=== PATIENT | male | born 1960 | race Caucasian/White ===

== ENCOUNTER → 2018-05-06 16:31 | Outpatient (CLI) | payer BC, SELFPAY ==
[2018-05-06 17:45] LABS: Absolute Lymphocyte Count 1.74 X10^3/ul (0.83-4.51); Absolute Neutrophil Count 4.6 X10^3/uL (2.0-7.7); Basophil# 0.06 X10^3/uL; Basophil% 0.9 % (0-1); Eosinophil# 0.19 X10^3/uL; Eosinophils% 2.7 % (0-5); Hematocrit 44.6 % (40-54); Hemoglobin 16.1 g/dl (13.0-16.5); Lymphocyte # 1.74 X10^3/ul (4.0); Lymphocyte % 24.9 % (19-41); Mean Corp Hgb Conc 36.1 g/gl (32-36); Mean Corpuscular Volume 85.8 fL (80-94); Mean Platelet Vol. 11.8 fl (6.2-12.0); Monocyte# 0.38 X10^3/uL; Monocyte% 5.4 % (0-10); Neutrophil # 4.62 X10^3/uL (2.7-7.7); Platelet Count 169 K/mm3 (150-450); RBC Distribution Width CV 13.3 % (11.6-14.6); RBC Distribution Width SD 40.8 fl (35.1-43.9)
[2018-05-06 17:46] LABS: POSITIVE COUNT NO; POSITIVE DIFFERENTIAL NO; POSITIVE MORPHOLOGY NO
[2018-05-06 18:06] LABS: ALB/GLOB Ratio 1.1 RATIO (0.9-2.4); AST(SGOT) 57 U/L (15-37); Alanine Aminotransfer ALT/SGPT 90 U/L (16-61); Albumin, Serum 3.9 g/dL (3.2-5.0); Alkaline Phosphatase 79 U/L (45-117); Anion Gap 12 (5-15); BUN 15 mg/dL (7-18); BUN/Creat Ratio 13.4 RATIO (10-20); Calcium,Total 9.2 mg/dL (8.5-10.1); Chloride 102 mmol/L (98-107); Creatinine, Serum 1.12 mg/dL (0.70-1.30); EST Glomerular Filtration Rate 72 mL/min (>60); Est Glom Filt Rate - Afr Amer 87 mL/min (>60); Globulin 3.5 g/dL (2.2-4.2); Glucose 242 mg/dL (74-106); Potassium 3.9 mmol/L (3.5-5.1); Protein, Total 7.4 g/dL (6.4-8.2); Sodium Level 139 mmol/L (136-145); Thyroid Stim Hormone (TSH) 1.87 uIU/mL (0.358-3.74)
== END ==
PROVIDERS: Visit Provider Family Medicine
DX: I10 Essential (primary) hypertension (principal); E11.65 Type 2 diabetes mellitus with hyperglycemia
CPT/HCPCS: 36415; 80053; 84443; 85025

== ENCOUNTER → 2018-05-19 07:45 | Outpatient (CLI) | payer BC, SELFPAY | PROVIDERS: Family Provider Family Medicine; PCP Family Medicine; Visit Provider Family Medicine | DX: R94.5 Abnormal results of liver function studies (principal) | CPT/HCPCS: 76705 ==

== ENCOUNTER → 2019-06-28 | Outpatient (CLI) | payer BC, SELFPAY ==
[2019-06-28 12:37] LABS: ALB/GLOB Ratio 1.3 RATIO (0.9-2.4); AST(SGOT) 22 U/L (15-37); Alanine Aminotransfer ALT/SGPT 36 U/L (16-61); Albumin, Serum 3.9 g/dL (3.2-5.0); Alkaline Phosphatase 72 U/L (45-117); Anion Gap 7 (5-15); BUN 21 mg/dL (7-18); Calcium,Total 8.8 mg/dL (8.5-10.1); Chloride 109 mmol/L (98-107); Creatinine, Serum 0.96 mg/dL (0.70-1.30); EST Glomerular Filtration Rate 86 mL/min (>60); Est Glom Filt Rate - Afr Amer 104 mL/min (>60); Globulin 3.1 g/dL (2.2-4.2); Glucose 171 mg/dL (74-106); Potassium 4.1 mmol/L (3.5-5.1); Sodium Level 141 mmol/L (136-145); Thyroid Stim Hormone (TSH) 2.59 uIU/mL (0.358-3.74)
[2019-06-28 12:40] LABS: Absolute Lymphocyte Count 1.26 X10^3/uL (0.83-4.51); Basophil# 0.05 X10^3/uL; Basophil% 0.9 % (0-1); Eosinophil# 0.15 X10^3/uL; Eosinophils% 2.6 % (0-5); Hematocrit 44.3 % (40-54); Hemoglobin 15.3 g/dL (13.0-16.5); Lymphocyte # 1.26 X10^3/ul (4.0); Lymphocyte % 21.5 % (19-41); Mean Corp Hgb Conc 34.5 g/dL (32-36); Mean Corpuscular Hgb 29.9 pg (27.0-32.0); Mean Corpuscular Volume 86.7 fL (80-94); Mean Platelet Vol. 11.8 fl (6.2-12.0); Monocyte# 0.36 X10^3/uL; Monocyte% 6.2 % (0-10); NRBC Flagged by Analyzer 0 % (0-5); Neutrophil # 4.02 X10^3/uL (2.7-7.7); Neutrophil % 68.6 % (47-70); Platelet Count 139 K/mm3 (150-450); RBC Distribution Width CV 12.9 % (11.6-14.6); RBC Distribution Width SD 40.3 fl (35.1-43.9); Red Blood Count 5.11 M/mm3 (4.6-6.2); White Blood Count 5.9 K/mm3 (4.4-11.0)
--- NOTE | 2019-06-28 13:37 | ECHOCS_ITS ---
Reason For Study: DILATED CARDIOMYOPATHY Procedure This was a 2D Doppler, Color Flow transthoracic echocardiogram. The study was technically difficult. Contrast injection was performed. Exam performed in department. Left Ventricle Normal LV size. Concentric left ventricular hypertrophy. The estimated ejection fraction is 55 %. No evidence for diastolic dysfunction. Hypokinesis of the inferior wall. Right Ventricle Normal RV size. Normal systolic function. Atria Normal left atrium. Normal right atrium. No doppler evidence for ASD. Mitral Valve There is no mitral valve stenosis. No mitral valve insufficiency. Tricuspid Valve There is no tricuspid stenosis. Unable to estimate RV systolic pressure due to insufficient tricuspid regurgitant envelope. Trivial tricuspid valve insufficiency. Aortic Valve Trisinus/trileaflet aortic valve. There is no aortic stenosis. Moderate (2+) aortic valve insufficiency. Pulmonic Valve There is no pulmonic valvular stenosis. No pulmonic valve insufficiency. Great Vessels Normal aortic root. Pericardium/Pleural No pericardial effusion. Medication 22 gauge I.V. with prn adaptor inserted into right arm. Diluted definity 3.5ml given slow IV push to enhance endocardial definition. MMode/2D Measurements & Calculations LVIDd: 6.4 cm IVSd: 1.4 cm LVOT diam: 2.5 cm LVIDs: 4.5 cm LVPWd: 1.2 cm RVDd: 4.0 cm FS: 29.9 % LVOT area: 4.7 cm2 Ao root diam: 3.4 cm LAV(MOD-bp): 66.8 ml LA A4 area: 19.2 cm2 LAV(MOD-bp) Indexed: 26.9 ml/m2 LAV(MOD-sp2): 76.3 ml LAV(MOD-sp4): 58.0 ml LA dimension(2D): 4.8 cm RA A4 area: 18.0 cm2 Time Measurements MV dec time: 0.20 sec Doppler Measurements & Calculations MV E max josue: 69.1 cm/sec Lat Peak E' Josue: 5.4 cm/sec Med Peak E' Josue: 4.8 cm/sec MV A max josue: 82.5 cm/sec E/E' lat: 12.9 E/E' med: 14.3 MV E/A: 0.84 Ao V2 max: 186.2 cm/sec AI max josue: 525.2 cm/sec LV V1 max: 82.3 cm/sec Ao max P.9 mmHg AI max P.4 mmHg LV V1 max P.7 mmHg Ao V2 mean: 138.6 cm/sec AI dec slope: 146.6 cm/sec2 LV V1 mean P.6 mmHg Ao mean P.4 mmHg AI P1/2t: 1050 msec LV V1 mean: 60.5 cm/sec Ao V2 VTI: 43.7 cm LV V1 VTI: 21.4 cm SUNITHA(I,D): 2.3 cm2 SUNITHA(V,D): 2.1 cm2 SV(LVOT): 101.6 ml PA V2 max: 105.0 cm/sec Interpretation Summary The study was technically difficult. Diluted definity 3.5ml given slow IV push to enhance endocardial definition. The estimated ejection fraction is 55 %. No evidence for diastolic dysfunction. Hypokinesis of the inferior wall Moderate (2+) aortic valve insufficiency. The study was technically difficult. Ordering Physician: Mikey Ledbetter Referring Physician: Mikey Ledebtter Performed By: Jyoti Miguel, ESPERANZA, RVT
== END | disposition home or self-care (01) ==
PROVIDERS: Family Provider Family Medicine; PCP Family Medicine; Referring Provider Family Medicine; Visit Provider Family Medicine
DX: E11.9 Type 2 diabetes mellitus without complications (principal); E78.5 Hyperlipidemia, unspecified; I10 Essential (primary) hypertension; I42.0 Dilated cardiomyopathy
CPT/HCPCS: 36415; 80053; 84439; 84443; 85025; 93306; Q9957; A4216; C8929

== ENCOUNTER → 2019-08-05 06:10 | Outpatient (CLI) | payer BC, SELFPAY ==
[2019-07-30 15:00] VITALS: BMI 36.3
--- NOTE | 2019-08-05 09:13 | STRESSREP_ITS ---
Stress Test Report Date: 08-05-19 Procedure: Pharmacologic stress nuclear imaging study Indications: Chest pain Consent: Per the patient Procedure: The patient underwent pharmacologic (Regadenoson) evaluation with a peak heart rate of 78 beats per minute (48 %predicted maximal heart rate) and a peak blood pressure of 140/92 mmHg. The baseline ECG demonstrated this bradycardia; nonspecific T wave abnormality. The peak pharmacologic ECG demonstrated continued nonspecific T wave abnormality. There was an occasional PAC during pharmacologic infusion and recovery. There was no complaint of chest discomfort during pharmacologic infusion or recovery. The examination was discontinued secondary to completion of protocol. Impression: 1. Pharmacologic (Regadenoson) evaluation 2. Peak pharmacologic ECG with continued nonspecific T wave abnormality. 3. There was an occasional PAC during pharmacologic infusion and recovery. 4. Nuclear images pending Myocardial perfusion imaging study: Technique: The patient was injected with 15.0 millicuries of technetium 99m Cardiolite and subsequently rest SPECT Cardiolite nuclear imaging was obtained in the horizontal long, vertical long, and short axis views. The patient underwent pharmacologic (Regadenoson) evaluation with a peak heart rate of 78 beats per minute (48 % percent predicted maximal heart rate) and a peak blood pressure of 140/92 mmHg. The patient was injected with 45.0 millicuries of technetium 99m Cardiolite and subsequently stress SPECT Cardiolite nuclear imaging was obtained in the horizontal long, vertical long, and short axis views. A gated Cardiolite study at peak stress was obtained. Interpretation: Rest and stress SPECT Cardiolite nuclear imaging status post realignment, normalization, and attenuation correction demonstrate straight a small area of myocardial perfusion/tracer uptake in the apical segments without significant change between rest and stress. There is end systolic thickening and brightening. The gated Cardiolite study demonstrates myocardial thickening and inward wall motion. The reported LVEF is 56 %. Impression: 1. Test and stress SPECT current nuclear imaging demonstrate myocardial perfusion changes appearing compatible with the effects of physiologic apical thinning with no myocardial perfusion changes considered diagnostic for associated stress-induced myocardial ischemia. 2. The gated Cardiolite study reports an LVEF of 56 %. This note was generated with [email or web address] software. It may contain incorrect words, spelling, and punctuation that were not noted in checking the note before signing.
== END ==
PROVIDERS: Family Provider Family Medicine; PCP Family Medicine; Referring Provider Internal Medicine Cardiovascular Disease; Visit Provider Internal Medicine Cardiovascular Disease
DX: I49.1 Atrial premature depolarization (principal); R07.9 Chest pain, unspecified
CPT/HCPCS: 78452; 93017; 93225; 93226; A9500; A4216; J2785

== ENCOUNTER → 2020-03-31 14:30 | Outpatient (CLI) | payer BC, SELFPAY ==
[2019-11-01 14:55] VITALS: BMI 36.4
[2020-03-31 15:30] LABS: Absolute Lymphocyte Count 1.52 X10^3/uL (0.83-4.51); Absolute Neutrophil Count 4.6 X10^3/uL (2.0-7.7); Basophil# 0.05 X10^3/uL; Basophil% 0.7 % (0-1); Eosinophil# 0.16 X10^3/uL; Eosinophils% 2.3 % (0-5); Hematocrit 44.7 % (40-54); Hemoglobin 15.3 g/dL (13.0-16.5); Lymphocyte # 1.52 X10^3/ul (4.0); Lymphocyte % 22.2 % (19-41); Mean Corp Hgb Conc 34.2 g/dL (32-36); Mean Corpuscular Hgb 29.8 pg (27.0-32.0); Mean Platelet Vol. 11.3 fl (6.2-12.0); Monocyte# 0.45 X10^3/uL; Monocyte% 6.6 % (0-10); NRBC Flagged by Analyzer 0 % (0-5); Neutrophil # 4.64 X10^3/uL (2.7-7.7); Neutrophil % 67.9 % (47-70); Platelet Count 169 K/mm3 (150-450); RBC Distribution Width CV 13.6 % (11.6-14.6); RBC Distribution Width SD 42.8 fl (35.1-43.9); Red Blood Count 5.14 M/mm3 (4.6-6.2); White Blood Count 6.8 K/mm3 (4.4-11.0)
[2020-03-31 15:49] LABS: ALB/GLOB Ratio 1.4 RATIO (0.9-2.4); AST(SGOT) 28 U/L (15-37); Alanine Aminotransfer ALT/SGPT 58 U/L (16-61); Albumin, Serum 4.1 g/dL (3.2-5.0); Alkaline Phosphatase 65 U/L (45-117); Anion Gap 8 (5-15); BUN 20 mg/dL (7-18); BUN/Creat Ratio 20.2 RATIO (10-20); Calcium,Total 8.9 mg/dL (8.5-10.1); Chloride 108 mmol/L (98-107); Cholesterol 175 mg/dL (200); Creatinine, Serum 0.99 mg/dL (0.70-1.30); EST Glomerular Filtration Rate 82 mL/min (>60); Est Glom Filt Rate - Afr Amer 99 mL/min (>60); Glucose 216 mg/dL (74-106); High Density Lipoprotein 36 mg/dL; Potassium 3.9 mmol/L (3.5-5.1); Protein, Total 7.1 g/dL (6.4-8.2); Sodium Level 141 mmol/L (136-145); Thyroid Stim Hormone (TSH) 2.58 uIU/mL (0.358-3.74); Triglycerides 337 mg/dL; Very Low Density Lipoprotein 67 mg/dL (5-40)
== END ==
PROVIDERS: PCP Family Medicine; Visit Provider Family Medicine
DX: E78.5 Hyperlipidemia, unspecified (principal); E11.9 Type 2 diabetes mellitus without complications; I10 Essential (primary) hypertension; E66.01 Morbid (severe) obesity due to excess calories; R94.5 Abnormal results of liver function studies
CPT/HCPCS: 36415; 80053; 80061; 84443; 85025

== ENCOUNTER → 2021-04-28 10:45 | Outpatient (CLI) | payer BC, SELFPAY ==
[2020-12-19 15:33] VITALS: BMI 36.8
[2021-04-28 11:41] LABS: Absolute Lymphocyte Count 1.33 X10^3/uL (0.83-4.51); Absolute Neutrophil Count 3.7 X10^3/uL (2.0-7.7); Basophil# 0.07 X10^3/uL; Basophil% 1.2 % (0-1); Eosinophils% 3.5 % (0-5); Hematocrit 42.7 % (40-54); Hemoglobin 14.7 g/dL (13.0-16.5); Lymphocyte # 1.33 X10^3/ul (0.83-4.51); Lymphocyte % 23.3 % (19-41); Mean Corp Hgb Conc 34.4 g/dL (32-36); Mean Corpuscular Hgb 30.3 pg (27.0-32.0); Mean Platelet Vol. 10.9 fl (6.2-12.0); Monocyte# 0.36 X10^3/uL; Monocyte% 6.3 % (0-10); NRBC Flagged by Analyzer 0 % (0-5); Neutrophil # 3.71 X10^3/uL (2.7-7.7); Neutrophil % 65.2 % (47-70); Platelet Count 153 K/mm3 (150-450); RBC Distribution Width CV 13.1 % (11.6-14.6); RBC Distribution Width SD 41.7 fl (35.1-43.9); Red Blood Count 4.85 M/mm3 (4.6-6.2); White Blood Count 5.7 K/mm3 (4.4-11.0)
[2021-04-28 12:11] LABS: ALB/GLOB Ratio 1.1 RATIO (0.9-2.4); AST(SGOT) 25 U/L (15-37); Alanine Aminotransfer ALT/SGPT 45 U/L (16-61); Albumin, Serum 3.9 g/dL (3.2-5.0); Alkaline Phosphatase 68 U/L (45-117); Anion Gap 5 (5-15); BUN 20 mg/dL (7-18); BUN/Creat Ratio 15.9 RATIO (10-20); Calcium,Total 9.1 mg/dL (8.5-10.1); Chloride 107 mmol/L (98-107); Cholesterol 181 mg/dL (200); Creatinine, Serum 1.26 mg/dL (0.70-1.30); EST Glomerular Filtration Rate 62 mL/min (>60); Est Glom Filt Rate - Afr Amer 75 mL/min (>60); Globulin 3.4 g/dL (2.2-4.2); Glucose 226 mg/dL (74-106); High Density Lipoprotein 37 mg/dL; Potassium 4.2 mmol/L (3.5-5.1); Protein, Total 7.3 g/dL (6.4-8.2); Sodium Level 139 mmol/L (136-145); Thyroid Stim Hormone (TSH) 2.42 uIU/mL (0.358-3.74); Triglycerides 298 mg/dL; Very Low Density Lipoprotein 60 mg/dL (5-40)
== END ==
PROVIDERS: PCP Family Medicine; Referring Provider Family Medicine; Visit Provider Family Medicine
DX: E11.9 Type 2 diabetes mellitus without complications (principal); I10 Essential (primary) hypertension; R94.5 Abnormal results of liver function studies
CPT/HCPCS: 36415; 80053; 80061; 84443; 85025

== ENCOUNTER → 2021-09-05 16:36 | Outpatient (CLI) | payer BC, SELFPAY ==
--- NOTE | 2021-09-05 16:38 | RAD_ITS ---
STUDY: X-RAY - ABDOMEN/PELVIS REASON FOR EXAM: Male, 61 years old. HEMATURIA, RULE OUT URETEROLITHIASIS TECHNIQUE: Single AP view of the abdomen / pelvis. COMPARISON: None. FINDINGS: Normal visualized lung bases. There is an unremarkable bowel gas pattern. The visualized liver, spleen and kidneys are grossly normal in size and morphology. Normal soft tissue structures. Normal visualized osseous structures. RAD/Abdomen Single View IMPRESSION: Normal x-ray examination of the abdomen and pelvis. Electronically Signed: Jose Joseph MD at 16:52 EST Tel , Service support ,
== END ==
PROVIDERS: PCP Family Medicine; Referring Provider Family Medicine; Visit Provider Family Medicine
DX: R31.9 Hematuria, unspecified (principal)
CPT/HCPCS: 74018

== ENCOUNTER → 2022-05-09 | Outpatient (CLI) | payer BC, SELFPAY ==
--- NOTE | 2022-05-09 16:47 | RAD_ITS ---
HISTORY: BACK PAIN. TECHNIQUE: XR Spine Lumbar Min 4 Views. COMPARISON: 05/12/2017. FINDINGS: VERTEBRAE: No acute fracture identified. Bridging osteophyte at L2-3. Degenerative changes of the posterior elements. ALIGNMENT: No significant anterior or posterior subluxation. INTERVERTEBRAL DISCS: Degenerative endplate changes with progression of intervertebral disc space narrowing at L2-3. RAD/L/S Spine Min 4 Views IMPRESSION: No acute fracture or dislocation identified in the lumbar spine. Progression of degenerative change at L2-3. Electronically Signed: Susana Alexis MD at 8:45 EDT ,
== END | disposition home or self-care (01) ==
LOC: MTRAD 16:44
PROVIDERS: PCP Family Medicine; Referring Provider Nurse Practitioner Family; Visit Provider Nurse Practitioner Family
DX: M46.96 Unspecified inflammatory spondylopathy, lumbar region (principal); M51.37 Other intervertebral disc degeneration, lumbosacral region; M54.17 Radiculopathy, lumbosacral region; M47.817 Spondylosis without myelopathy or radiculopathy, lumbosacral region
CPT/HCPCS: 72110

== ENCOUNTER → 2023-01-10 | Outpatient (CLI) | payer BC, SELFPAY ==
[2023-01-10 17:56] LABS: Absolute Lymphocyte Count 1.82 X10^3/uL (0.83-4.51); Absolute Neutrophil Count 4.9 X10^3/uL (2.0-7.7); Basophil# 0.07 X10^3/uL; Basophil% 0.9 % (0-1); Eosinophil# 0.17 X10^3/uL; Eosinophils% 2.3 % (0-5); Hemoglobin 14.9 g/dL (13.0-16.5); Lymphocyte # 1.82 X10^3/ul (0.83-4.51); Lymphocyte % 24.6 % (19-41); Mean Corp Hgb Conc 33.9 g/dL (32-36); Mean Corpuscular Hgb 29.7 pg (27.0-32.0); Mean Corpuscular Volume 87.6 fL (80-94); Mean Platelet Vol. 10.8 fl (6.2-12.0); Monocyte# 0.41 X10^3/uL; Monocyte% 5.5 % (0-10); NRBC Flagged by Analyzer 0 % (0-5); Neutrophil # 4.92 X10^3/uL (2.7-7.7); Neutrophil % 66.6 % (47-70); Platelet Count 175 K/mm3 (150-450); RBC Distribution Width CV 13.6 % (11.6-14.6); RBC Distribution Width SD 43.6 fl (35.1-43.9); Red Blood Count 5.02 M/mm3 (4.6-6.2); White Blood Count 7.4 K/mm3 (4.4-11.0)
[2023-01-10 18:35] LABS: ALB/GLOB Ratio 1.2 RATIO (0.9-2.4); AST(SGOT) 29 U/L (15-37); Alanine Aminotransfer ALT/SGPT 56 U/L (16-61); Albumin, Serum 3.9 g/dL (3.2-5.0); Alkaline Phosphatase 67 U/L (45-117); Anion Gap 6 (5-15); BUN 19 mg/dL (7-18); BUN/Creat Ratio 19.2 RATIO (10-20); Calcium,Total 9.4 mg/dL (8.5-10.1); Chloride 105 mmol/L (98-107); Cholesterol 148 mg/dL (200); Creatinine, Serum 0.99 mg/dL (0.70-1.30); EST Glomerular Filtration Rate 81 mL/min (>60); Est Glom Filt Rate - Afr Amer 99 mL/min (>60); Globulin 3.2 g/dL (2.2-4.2); Glucose 102 mg/dL (74-106); High Density Lipoprotein 39 mg/dL; Potassium 3.7 mmol/L (3.5-5.1); Protein, Total 7.1 g/dL (6.4-8.2); Sodium Level 137 mmol/L (136-145); Triglycerides 235 mg/dL; Very Low Density Lipoprotein 47 mg/dL (5-40)
== END | disposition home or self-care (01) ==
LOC: BFHLAB 16:37
PROVIDERS: PCP Nurse Practitioner Family; Referring Provider Nurse Practitioner Family; Visit Provider Nurse Practitioner Family
DX: Z00.00 Encounter for general adult medical examination without abnormal findings (principal); E11.9 Type 2 diabetes mellitus without complications; E78.5 Hyperlipidemia, unspecified; I10 Essential (primary) hypertension
CPT/HCPCS: 36415; 80053; 80061; 85025

== ENCOUNTER 2023-02-15 15:38 | Emergency (ER) | payer BC, SELFPAY ==
[2023-02-15 15:38] VITALS: BP 141/63; PULSE 62; RESP 18; TEMP 37.2; O2SAT 98; BMI 37.1
--- NOTE | 2023-02-15 15:48 | EX.ED.DYSGE1 ---
HPI <DENICE Carpenter - Last Filed: 02/15/23 16:53> History of Present Illness Chief Complaint: Cellulitis Narrative Narrative: Patient states a few days ago he put on an oven mitt and felt something sharp poke the back of his right hand. He thought maybe it was a piece of fiberglass in the mitt. It caused a small wound and he scratched it. The next day it was swollen and he pushed on it and expressed some pus. Since then the area has become more red and swollen over the hand with pain. He is right-hand dominant. He denies fever or chills but does feel nauseous today. He went to urgent care and they noticed a red streak up his arm and sent him to the ED. [facility] <DENICE Carpenter - Last Filed: 02/15/23 16:53> [facility] Medical History (Updated 02/15/23 @ 16:53 by DENICE Carpenter) Colon polyps DDD (degenerative disc disease) Dilated cardiomyopathy Essential hypertension Nonrheumatic aortic (valve) insufficiency Premature atrial contraction Type 2 diabetes mellitus Home Medications aspirin 81 mg tablet,delayed release 81 mg PO DAILY@0800 12/30/16 [History Last Taken Unknown] hydrochlorothiazide 12.5 mg tablet 12.5 mg PO DAILY 12/30/16 [History Last Taken Unknown] lisinopril 40 mg tablet 40 mg PO DAILY 12/30/16 [History Last Taken 01/06/17 06:45] metformin 500 mg tablet 500 mg PO BIDCM 12/30/16 [History Last Taken Unknown] multivitamin 1 ea PO DAILY 12/30/16 [History Last Taken Unknown] omega-3 fatty acids-fish oil 340 mg-1,000 mg capsule 1 ea PO DAILY 12/30/16 [History Last Taken Unknown] pravastatin 20 mg tablet 20 mg PO DAILY 12/30/16 [History Last Taken Unknown] metoprolol succinate 100 mg tablet,extended release 24 hr 100 mg PO DAILY 07/26/19 [History Last Taken Unknown] glimepiride 4 mg tablet 4 mg PO DAILY 12/19/20 [History Last Taken Unknown] amlodipine 5 mg tablet 5 mg PO DAILY #90 tabs 07/12/21 [Rx Last Taken Unknown] cephalexin 500 mg capsule 500 mg PO Q6 #40 CAPSULES 02/15/23 [Rx Last Taken Unknown] Allergy/AdvReac Type Severity Reaction Status Date / Time atorvastatin [From Lipitor] AdvReac LEG CRAMPS Verified 12/19/20 15:33 Family History Brother Valvular heart disease Brother Atrial fibrillation Father Hypertension Mother CHF (congestive heart failure) Sister Sudden cardiac , Onset Age: 35 Social History Smoking Status: Never smoker alcohol intake: never substance use type: does not use caffeine: No ROS <DENICE Carpenter - Last Filed: 02/15/23 16:53> ROS ED ROS Narrative Constitutional: Negative for fever, chills, malaise. GI: Positive for nausea, negative for vomiting. Neuro: Negative for headache, motor/sensory dysfunction. Skin: Negative for rash, abscess, or wound. Musc: Negative for joint pain, swelling, trauma. Heme: Negative for easy bruising, bleeding, lymphadenopathy. EXAM <DENICE Carpenter - Last Filed: 02/15/23 16:53> Physical Exam Narrative Exam Narrative: CONST: Patient sitting in no acute distress. EYES: Normal inspection. NECK: Normal inspection. RESP: No respiratory distress, CTAB. CVS: Regular rate and rhythm, no murmur, no gallop. SKIN: Soft tissue swelling and erythema over the dorsal right hand, hard to visualize but possibly slight red streak up the forearm. No fluctuance or crepitus, compartments soft. Full range of motion of elbow wrist and hand, no swelling of the fingers. 2+ radial pulse and motor and sensory function intact. NEURO: Oriented x4. PSYCH: Normal affect. Const Vital Signs: 02/15/23 15:38 Temperature 98.9 F Temperature Source Oral Pulse Rate 62 Respiratory Rate 18 Blood Pressure 141/63 H Blood Pressure Mean 89 Pulse Ox 98 Oxygen Delivery Method Room Air <Dr. Ronnie Yang MD - Last Filed: 02/15/23 16:46> Physical Exam Const Vital Signs: 02/15/23 15:38 Temperature 98.9 F Temperature Source Oral Pulse Rate 62 Respiratory Rate 18 Blood Pressure 141/63 H Blood Pressure Mean 89 Pulse Ox 98 Oxygen Delivery Method Room Air MDM <DENICE Carpenter - Last Filed: 02/15/23 16:53> MDM MDM Narrative Medical decision making narrative: Patient had a puncture wound to his right dorsal hand and now has cellulitis and soft tissue swelling. There is possibly slight lymphangitic streaking up the arm. He appears well and nontoxic. Afebrile with normal vital signs. White count 14.8, glucose 214. He was given a dose of IV Unasyn. He really wants to go home since he takes care of his grandchild so I feel a trial of outpatient antibiotics is reasonable. He was prescribed Keflex 4 times daily. I contacted someone in his PCP office, Dr. Alvarez, to arrange close follow-up on Friday. Return if symptoms worsen. He was discharged in stable condition. Differential: Cellulitis, abscess, no sign of necrotizing fasciitis I have personally performed a face to face assessment of the patient and have reviewed the KALYANI Note. I performed a substantive portion of the visit including all aspects of the following. My king findings include: History is 62-year-old male diabetic and alrba-ynju-efybrybv. Had a puncture wound to the dorsum of his right hand and since that time has developed cellulitis. I evaluated this patient with our physician certified ophthalmic assistant. Exam is [well-appearing 60-year-old male. Vital signs stable afebrile. HEENT exam unremarkable. Lungs clear. Heart regular rhythm no murmur. Abdomen soft nontender. Right hand is swollen mildly tender. He has full flexion extension all digits of the hand. There is no Canaval sign.] Medical Decision Making [62-year-old male wfgww-usuk-zohbyxhs with cellulitis of his right hand. Treated with IV Unasyn. Skin elevated white count of 14.8 but clinically looks well. He is afebrile on repeat exam he is doing well at 4:40 PM. We placed on Keflex 500 mg 4 times a day for 10 days return if worse. Follow-up with his doctor to ensure it is improving. We have his physician's office on page. To ensure close follow-up.] Other additions or changes: [None] Lab Data Labs: Laboratory Results - last 24 hr 02/15/23 02/15/23 16:04 16:04 WBC 14.8 H RBC 4.85 Hgb 14.9 Hct 42.3 MCV 87.2 MCH 30.7 MCHC 35.2 RDW Std Deviation 43.3 RDW Coeff of Shania 13.8 Plt Count 164 MPV 10.7 Immature Gran % (Auto) 0.400 Neut % (Auto) 83.9 H Lymph % (Auto) 7.6 L Nelson % (Auto) 6.6 Eos % (Auto) 1.0 Baso % (Auto) 0.5 Absolute Neuts (auto) 12.4 H Absolute Lymphs (auto) 1.13 Nucleated RBC % 0 Sodium 137 Potassium 4.4 Chloride 103 Carbon Dioxide 26.0 Anion Gap 8 BUN 24 H Creatinine 1.27 Estim Creat Clear Calc 68.16 Est GFR (MDRD) Af Amer 74 Est GFR (MDRD) Non-Af 61 BUN/Creatinine Ratio 18.9 Glucose 214 H Calcium 9.5 <Dr. Ronnie Yang MD - Last Filed: 02/15/23 16:46> MDM MDM Narrative Medical decision making narrative: I have personally performed a face to face assessment of the patient and have reviewed the KALYANI Note. I performed a substantive portion of the visit including all aspects of the following. My king findings include: History is 62-year-old male diabetic and gemoy-dcbx-gvckzfvy. Had a puncture wound to the dorsum of his right hand and since that time has developed cellulitis. I evaluated this patient with our physician certified ophthalmic assistant. Exam is [well-appearing 60-year-old male. Vital signs stable afebrile. HEENT exam unremarkable. Lungs clear. Heart regular rhythm no murmur. Abdomen soft nontender. Right hand is swollen mildly tender. He has full flexion extension all digits of the hand. There is no Canaval sign.] Medical Decision Making [62-year-old male nhvwu-thpz-ziycdhmw with cellulitis of his right hand. Treated with IV Unasyn. Skin elevated white count of 14.8 but clinically looks well. He is afebrile on repeat exam he is doing well at 4:40 PM. We placed on Keflex 500 mg 4 times a day for 10 days return if worse. Follow-up with his doctor to ensure it is improving. We have his physician's office on page. To ensure close follow-up.] Other additions or changes: [None] Lab Data Labs: Laboratory Results - last 24 hr 02/15/23 02/15/23 16:04 16:04 WBC 14.8 H RBC 4.85 Hgb 14.9 Hct 42.3 MCV 87.2 MCH 30.7 MCHC 35.2 RDW Std Deviation 43.3 RDW Coeff of Shania 13.8 Plt Count 164 MPV 10.7 Immature Gran % (Auto) 0.400 Neut % (Auto) 83.9 H Lymph % (Auto) 7.6 L Nelson % (Auto) 6.6 Eos % (Auto) 1.0 Baso % (Auto) 0.5 Absolute Neuts (auto) 12.4 H Absolute Lymphs (auto) 1.13 Nucleated RBC % 0 Sodium 137 Potassium 4.4 Chloride 103 Carbon Dioxide 26.0 Anion Gap 8 BUN 24 H Creatinine 1.27 Estim Creat Clear Calc 68.16 Est GFR (MDRD) Af Amer 74 Est GFR (MDRD) Non-Af 61 BUN/Creatinine Ratio 18.9 Glucose 214 H Calcium 9.5 Discharge Plan Triage Chief Complaint: Cellulitis ED Midlevel Provider: Hollie Henderson ED Provider: Ronnie Yang Dx/Rx/DC Orders Clinical Impression: Cellulitis of arm, right, History of type 2 diabetes mellitus Instructions: Cellulitis Dc Prescriptions: New cephalexin 500 mg capsule 500 mg PO Q6 Qty: 40 0RF No Action metoprolol succinate 100 mg tablet extended release 24 hr 100 mg PO DAILY glimepiride 4 mg tablet 4 mg PO DAILY multivitamin 1 EACH tablet 1 ea PO DAILY aspirin 81 MG tablet 81 mg PO DAILY@0800 Label Comments: WILL STOP 5 DAYS PRIOR pravastatin 20 MG tablet 20 mg PO DAILY lisinopril 40 MG tablet 40 mg PO DAILY omega-3 fatty acids-fish oil 1 EACH capsule 1 ea PO DAILY hydrochlorothiazide 12.5 MG tablet 12.5 mg PO DAILY metformin 500 MG tablet 500 mg PO BIDCM amlodipine 5 mg tablet 5 mg PO DAILY Qty: 90 3RF Primary Care Provider: Andreea Wilde Referrals: Andreea Wilde, [employer] [Primary Care Provider] - Activity Restrictions/Additional Instructions: Follow-up with your PCP on Friday to have them recheck your infection. If it worsens prior to then or you develop a fever, worsening redness come back to the ER. Disposition Disposition: Home, Self Care
[2023-02-15 16:08] LABS: Absolute Lymphocyte Count 1.13 X10^3/uL (0.83-4.51); Absolute Neutrophil Count 12.4 X10^3/uL (2.0-7.7); Basophil# 0.07 X10^3/uL; Basophil% 0.5 % (0-1); Eosinophil# 0.15 X10^3/uL; Hematocrit 42.3 % (40-54); Hemoglobin 14.9 g/dL (13.0-16.5); Lymphocyte # 1.13 X10^3/ul (0.83-4.51); Lymphocyte % 7.6 % (19-41); Mean Corp Hgb Conc 35.2 g/dL (32-36); Mean Corpuscular Hgb 30.7 pg (27.0-32.0); Mean Corpuscular Volume 87.2 fL (80-94); Mean Platelet Vol. 10.7 fl (6.2-12.0); Monocyte# 0.98 X10^3/uL; Monocyte% 6.6 % (0-10); NRBC Flagged by Analyzer 0 % (0-5); Neutrophil # 12.43 X10^3/uL (2.7-7.7); Neutrophil % 83.9 % (47-70); Platelet Count 164 K/mm3 (150-450); RBC Distribution Width CV 13.8 % (11.6-14.6); RBC Distribution Width SD 43.3 fl (35.1-43.9); Red Blood Count 4.85 M/mm3 (4.6-6.2); White Blood Count 14.8 K/mm3 (4.4-11.0)
[2023-02-15 16:23] LABS: Anion Gap 8 (5-15); BUN 24 mg/dL (7-18); BUN/Creat Ratio 18.9 RATIO (10-20); Calcium,Total 9.5 mg/dL (8.5-10.1); Chloride 103 mmol/L (98-107); Creatinine, Serum 1.27 mg/dL (0.70-1.30); EST Glomerular Filtration Rate 61 mL/min (>60); Est Glom Filt Rate - Afr Amer 74 mL/min (>60); Estimated Creatinine Clearance 68.16 ml/min; Glucose 214 mg/dL (74-106); Potassium 4.4 mmol/L (3.5-5.1); Sodium Level 137 mmol/L (136-145)
[2023-02-15 16:59] VITALS: BP 140/69; PULSE 50; RESP 14; TEMP 36.5; O2SAT 95
[2023-02-15 17:33] VITALS: RESP 14
== END 2023-02-15 17:36 | disposition home or self-care (01) ==
PROVIDERS: Physician Assistant; Emergency Provider Emergency Medicine; PCP Nurse Practitioner Family; Visit Provider Emergency Medicine
DX: L03.113 Cellulitis of right upper limb (principal); E11.9 Type 2 diabetes mellitus without complications; I10 Essential (primary) hypertension; S61.431A Puncture wound without foreign body of right hand, initial encounter; X58.XXXA Exposure to other specified factors, initial encounter
CPT/HCPCS: 80048; 85025; 96365; 99283; A4216; J0295

== ENCOUNTER 2023-04-23 07:17 | Day surgery (SDC) | payer BC, SELFPAY ==
[2023-04-23] VITALS (7 sets, daily range): BP systolic 98–178; BP diastolic 55–76; PULSE 55–70; RESP 16–18; TEMP 36.3–36.6; O2SAT 85–98; BMI 35.7
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
[2023-04-23] MEDS: Lactated Ringers 1,000 ML 15 ML IV (07:44)
[2023-04-23 08:05] LABS: Bedside Glucose 242 mg/dL (74-106)
--- NOTE | 2023-04-23 08:30 | COLBX_PTH ---
PATIENT: ROGELIO DAVENPORT LOC: EN U#:[id number] AGE/SX: 62/M ROOM: RE04/23/[address]: Dr. Lorena Garsia MD : 1960 BED: DIS: 04/23/2023 SPEC #: [id number] RECD: 04/23/23 11:50 STATUS: CISCO MARYSOL #: [id number] GARRY: 04/23/23 08:[address]: Lorena Garsia DEPT: SURGICAL PATHOLOGY RECD BY: Josette Rogers ENTERED: 04/23/23 13:03 SP TYPE: COLON BX OTHR DR: Andreea Wilde, FOURDRINIER MACHINE OPERATOR-C Tissues: A - Ascending colon B - Transverse colon C - Descending colon Procedures: Surgery Specimen Level IV HEADER OPERATION: Colonoscopy - open access (MAC) with biopsies PRE-OP DIAGNOSIS: History of adenomatous colonic polyps TISSUE SUBMITTED: A - Ascending colon polyp, B - Lipoma of transverse, C - Descending colon polyp MICROSCOPIC DIAGNOSIS A. Ascending colon polyp, biopsy: Tubular adenoma. B. Lipoma of transverse colon, biopsy: Submucosal mature adipose tissue consistent with lipoma. C. Descending colon polyp, biopsy: Fragments of tubular adenoma. AM:sivan 04/24/2023 MICROSCOPIC DESCRIPTION Slides are reviewed. GROSS DESCRIPTION A - Received in fixative is one container labeled with the patient's name and designated ascending colon polyp. The specimen consists of one irregular fragment of light mackey soft tissue that measures 0.4 x 0.3 x 0.1 cm. The specimen is totally submitted in one cassette. B - Received in fixative is one container labeled with the patient's name and designated lipoma of transverse. The specimen consists of two irregular fragments of light mackey soft tissue that in aggregate measure 0.6 x 0.3 x 0.1 cm. The specimen is totally submitted in one cassette. C - Received in fixative is one container labeled with the patient's name and designated descending colon polyp. The specimen consists of multiple irregular fragments of light mackey soft tissue that in aggregate measure 0.6 x 0.2 x 0.1 cm. The specimen is totally submitted in one cassette. / MARCY:sivan 04/23/2023 TC:5 CPT: 07557 x3
--- NOTE | 2023-04-23 09:14 | OP.CCLET_ITS ---
04/23/2023 Conrado Romo Re : Colonoscopy procedure for Roni Estrada Dear Andry This procedure was performed on Sunday, April 23, 2023. My impressions and recommendations are as follows: Impressions : - Diverticulosis in the sigmoid colon. - Two less than 5 mm polyps in the descending colon and in the ascending colon, removed with a cold biopsy forceps. Resected and retrieved. - Small lipoma in the transverse colon. Biopsied. - The examination was otherwise normal on direct and retroflexion views. Recommendations : - Discharge patient to home. - High fiber diet. - Continue present medications. - Await pathology results. - Repeat colonoscopy in 5 years for surveillance based on pathology results. My findings are described in the full procedure note, which is enclosed. If I can be of further assistance, please feel free to contact me at Doctor phone number(s): , Work: . Sincerely, MD Lorena Chamorro MD 04/23/2023 9:13:43 AM This report has been signed electronically.
--- NOTE | 2023-04-23 09:14 | OP.COLON_ITS ---
Patient Name: Rnoi Estrada Procedure Date: 04/23/2023 8:28 AM Date of : 1960 Age: 62 Procedure: Colonoscopy Indications: High risk colon cancer surveillance: Personal history of non-advanced adenoma Providers: Lorena Garsia MD Referring MD: Conrado Romo Medicines: Monitored Anesthesia Care Patient Profile: This is a 62 year old male. Last Colonoscopy: 5 years ago. Complications: No immediate complications. Procedure: Pre-Anesthesia Assessment: - Prior to the procedure, a History and Physical was performed, and patient medications and allergies were reviewed. The patient's tolerance of previous anesthesia was also reviewed. The risks and benefits of the procedure and the sedation options and risks were discussed with the patient. All questions were answered, and informed consent was obtained. Prior Anticoagulants: The patient has taken no previous anticoagulant or antiplatelet agents. ASA Grade Assessment: Per anesthesia. After reviewing the risks and benefits, the patient was deemed in satisfactory condition to undergo the procedure. After I obtained informed consent, the scope was passed under direct vision. Throughout the procedure, the patient's blood pressure, pulse, and oxygen saturations were monitored continuously. The Colonoscope was introduced through the anus and advanced to the cecum, identified by the appendiceal orifice, ileocecal valve and palpation. The colonoscopy was performed without difficulty. The patient tolerated the procedure well. The quality of the bowel preparation was good. Scope In: 8:44:34 AM Scope Withdrawal Time 0 hours 13 minutes 55 seconds Scope Out: 9:02:55 AM Total Procedure Duration Time 0 hours 18 minutes 21 seconds Findings: The perianal and digital rectal examinations were normal. A few small-mouthed diverticula were found in the sigmoid colon. Two sessile polyps were found in the descending colon and ascending colon. The polyps were less than 5 mm in size. These polyps were removed with a cold biopsy forceps. Resection and retrieval were complete. There was a small lipoma, in the transverse colon. Biopsies were taken with a cold forceps for histology. The exam was otherwise without abnormality on direct and retroflexion views. Impression: - Diverticulosis in the sigmoid colon. - Two less than 5 mm polyps in the descending colon and in the ascending colon, removed with a cold biopsy forceps. Resected and retrieved. - Small lipoma in the transverse colon. Biopsied. - The examination was otherwise normal on direct and retroflexion views. Recommendation: - Discharge patient to home. - High fiber diet. - Continue present medications. - Await pathology results. - Repeat colonoscopy in 5 years for surveillance based on pathology results. Procedure Code(s): --- Professional --- 56020, PT, Colonoscopy, flexible; with biopsy, single or multiple Diagnosis Code(s): --- Professional --- Z86.010, Personal history of colonic polyps D12.4, Benign neoplasm of descending colon D12.2, Benign neoplasm of ascending colon D17.5, Benign lipomatous neoplasm of intra-abdominal organs K57.30, Diverticulosis of large intestine without perforation or abscess without bleeding CPT copyright 2017 [employer]. All rights reserved. The codes documented in this report are preliminary and upon gas plant worker review may be revised to meet current compliance requirements. MD Lorena Chamorro MD 04/23/2023 9:13:43 AM This report has been signed electronically. Number of Addenda: 0 Note Initiated On: 04/23/2023 8:28 AM
== END 2023-04-23 09:52 | disposition home or self-care (01) ==
LOC: EN 07:20 → AC 07:22
PROVIDERS: PCP Nurse Practitioner Family; Referring Provider Nurse Practitioner Family; Visit Provider Surgery
PROC: 0DJD8ZZ Inspection of Lower Intestinal Tract, Via Natural or Artificial Opening Endoscopic (ICD-10-PCS; CPT 45378; principal; 2023-04-23 08:25)
DX: Z12.11 Encounter for screening for malignant neoplasm of colon (principal); I42.0 Dilated cardiomyopathy; E11.9 Type 2 diabetes mellitus without complications; D12.2 Benign neoplasm of ascending colon; D12.4 Benign neoplasm of descending colon; D17.5 Benign lipomatous neoplasm of intra-abdominal organs; K57.30 Diverticulosis of large intestine without perforation or abscess without bleeding; I10 Essential (primary) hypertension; E78.00 Pure hypercholesterolemia, unspecified; Z79.82 Long term (current) use of aspirin; Z79.84 Long term (current) use of oral hypoglycemic drugs; Z79.899 Other long term (current) drug therapy; Z86.010 Personal history of colon polyps
CPT/HCPCS: 45380; 82962; 88305; J7120; J2405

== ENCOUNTER → 2023-11-06 | Outpatient (CLI) | payer BC, SELFPAY ==
--- OUTSIDE RECORDS SUMMARY | 2023-11-06 08:38 | XMS RPT_ITS | CCD ---
Author Name Unknown Address [address] [place] [address] Organization [facility] Care Team Providers Care Information Lead Name Role Phone Unavailable Primary Care Provider Unavailabl e Allergies Allergy Classification Reported Allergen(s) Allergy Type Date of Onset Reaction(s) Facility (2 sources) atorvastatin; Translations: [ATORVASTATIN] Drug Allergy 02-21-2006 Intolerance [facility] Medications Completed/Discontinued Medications Medication Drug Class(es) Dates Sig (Normalized) Sig (Original) allopurinol 300 mg oral tablet (1 source) Xanthine Oxidase Inhibitor Start: 06-24-2014 take 1 tablet by mouth once daily allopurinol (ZYLOPRIM) 300 mg tablet Indications: Gout Take 1 tablet by mouth once daily. 90 tablet 3 06/24/2014 Active Problems Active Problems Problem Classification Problem Date Documented Da te Episodic/Chronic Diabetes mellitus without complication (1 source) Diabetes mellitus; Translations: [Type 2 diabetes mellitus without complications] Onset: 01-16-2010 01-16-2010 Chronic Disorders of lipid metabolism (1 source) Hyperlipidemia; Translations: [Hyperlipidemia, unspecified] Onset: 06-24-2005 01-16-2010 Chronic Essential hypertension (1 source) Benign essential hypertension; Translations: [Essential (primary) hypertension] Onset: 06-24-2005 01-16-2010 Chronic Fever of unknown origin (1 source) Fever; Translations: [Fever, unspecified] Episodic Gout and other crystal arthropathies (1 source) Gout; Translations: [Gout, unspecified] Onset: 04-08-2011 04-09-2011 Chronic Hemorrhoids (1 source) Internal hemorrhoids; Translations: [Other hemorrhoids] 01-16-2010 Episodic Osteoarthritis (1 source) Localized, primary osteoarthritis; Translations: [Unilateral primary osteoarthritis, unspecified knee] Onset: 08-06-2011 08-06-2011 Chronic Other nutritional; endocrine; and metabolic disorders (1 source) Morbid obesity; Translations: [Morbid (severe) obesity due to excess calories] Onset: 01-16-2010 01-16-2010 Chronic Skin and subcutaneous tissue infections (1 source) Cellulitis of skin; Translations: [Cellulitis, unspecified] Episodic Past or Other Problems Problem Classification Problem Date Documented Da te Episodic/Chronic Other and unspecified benign neoplasm (1 source) Benign neoplasm of colon; Translations: [Benign neoplasm of colon, unspecified] Onset: 07-30-2005 01-16-2010 Episodic Other liver diseases (1 source) Elevated liver enzymes level; Translations: [Abnormal levels of other serum enzymes] Onset: 01-16-2010 06-24-2014 Episodic Other non-traumatic joint disorders (1 source) Pain in right knee; Translations: [Pain in joint, lower leg] Onset: 07-11-2010 04-09-2011 Episodic Results Test Name Value Interpretation Reference Range Facil ity Vital Signs Date Time Vital Sign Value Performing Clinician Faci litrenee 02-15-2023 15:18-0400 Body temperature 100.8 [degF] Kateryna Athy PA-C Work Phone: [facility] 02-15-2023 15:18-0400 Body weight 127.46 kg Kateryna Athy PA-C Work Phone: [facility] 02-15-2023 15:18-0400 Diastolic blood pressure 78 mm[Hg] Kateryna Athy PA-C Work Phone: [facility] 02-15-2023 15:18-0400 Heart rate 59 /min Kateryna Athy PA-C Work Phone: [facility] 02-15-2023 15:18-0400 Respiratory rate 16 /min Kateryna Athy PA-C Work Phone: [facility] 02-15-2023 15:18-0400 SaO2% (BldA) [Mass fraction] 97 % Kateryna Athy PA-C Work Phone: [facility] 02-15-2023 15:18-0400 Systolic blood pressure 130 mm[Hg] Kateryna Athy PA-C Work Phone: [facility] Encounters Encounter Date Encounter Type Care Provider Facility Start: 02-15-2023 End: 02-15-2023 ambulatory Facility:[facility] Start: 02-15-2023 End: 02-15-2023 Patient encounter procedure Kateryna Okeefe PA-C Work Phone: [facility] Procedures Date Procedure Procedure Detail Performing Clinician Start: 06-24-2011 Colonoscopy Kateryna Okeefe PA-C Work Phone: Plan of Treatment Date Care Activity Detail Author Start: 09-15-2022 DEPRESSION ASSESSMENT DEPRESSION ASS ESSMENT [facility] Start: 03-15-2021 COVID-19 VACCINE (3 - Booster for Moderna series) COVID-19 VACCINE (3 - Booster for Moderna series) [facility] Start: 06-10-2017 PROSTATE CANCER SCRE ENING DISCUSSION PROSTATE CANCER SCREENING DISCUSSION [facility] Start: 06-24-2016 Colonoscopy COLONOSCOPY [facility] Start: 06-24-2016 COLORECTAL CANCER SCREENING COLORECTAL CANCER SCREENING [facility] Start: 06-02-2016 Urine microalbumin profile DTAP,TDAP ,TD (2 - Tdap) [facility] Start: 08-18-2015 Hepatitis C antibody , confirmatory test DILATED RETINAL EXAM [facility] Start: 06-28-2015 Hepatitis B surface antibody level LDL CHOLESTEROL [facility] Start: 09-28-2014 Hemoglobin A1c/Hemoglobin.total in Blood HBA1C [facility] Start: 11-28-2013 Hepatitis B screening URINE AL BUMIN:CREATININE RATIO [facility] Start: 04-08-2012 3 comp foot exam completed DIABETIC FOOT EXAM [facility] Start: 07-11-2011 PNEUMOCOCCAL (2 - PCV) PNEUMOCOCCAL (2 - PCV) [facility] Start: 2010 SHINGRIX VACCINE (1 of 2) SHINGRIX V ACCINE (1 of 2) [facility] Start: 03-10-2008 SIGMOIDOSCOPY SIGMOIDOSCOPY [facility] Start: 2005 COLOGUARD (FIT-DNA) COLOGUARD (FIT-D NA) [facility] Start: [address] COLONOGRAPHY [facility] Start: 2005 FECAL OCCULT BLOOD FECAL OCCULT BLOO D [facility] Start: 1978 ANNUAL PCP TEAM [employer] 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 SHARLENE DISEASE VISIT ANNUAL PCP TEAM CHRONIC DISEASE VISIT [facility] Start: 1978 BP CONTROLLED (<130/80) BP CONTROLLE D (<130/80) [facility] Start: 1978 HEPATITIS C SCREENING HEPATITIS C SC OLGAMINE [facility] Start: 1978 HIV SCREENING HIV SCREENING [facility] Immunizations Immunization Date Immunization Notes Care Provider Bartolome paytonmis 06-29-2014 influenza virus vacc ine, whole virus Kateryna Okeefe PA-C Work Phone: [facility] 06-24-2013 influenza virus vacc ine, unspecified formulation Kateryna Okeefe PA-C Work Phone: [facility] 07-11-2010 pneumococcal polysaccharide vaccine, 23 valent Kateryna Okeefe PA-C Work Phone: [facility] 06-01-2010 influenza virus vacc ine, unspecified formulation Kateryna Okeefe PA-C Work Phone: [facility] 06-02-2006 diphtheria and tetan us toxoids, adsorbed for pediatric use Kateryna Okeefe PA-C Work Phone: [facility] Work Phone: Payers Date Payer Category Payer Unknown [employer] BLUE CARD PPO OOS [id number] 2022-Present [phone] [address] [place] [address] PPO [id number] 2022 Unknown [id number] Social History Date Type Detail Facility Tobacco smoking stat us MEIS Never smoked tobacco [facility] Start: 02-15-2023 Alcohol intake Current non-dr can cutter of alcohol (finding) [facility] Start: 1960 Sex Assigned At Not on file [facility] Progress note 02-15-2023 Note Date & Type Note Facility 02-15-2023 Note HNO ID: [id number] Author: Kateryna Okeefe PA-C Service: ? Author Type: Physician Hardwood Finisher Type: Progress Notes Filed: 02/15/2023 3:33 PM Note Text: This note was created using NoteWriter. Subjective Rogelio Davenport is a 62 year old male. HPI Presents with the chief complaint of right hand redness and swelling. He is diabetic. He thinks he got bit by a spider as he put his hand in a work glove and felt a sharp pinch 2 days ago. He noticed it got more red and swollen today. More painful. He has had some nausea and a headache. Denies history of MRSA. Review of Systems Constitutional: Positive for fatigue. Musculoskeletal: Right hand redness and swelling Neurological: Positive for headaches. All other systems reviewed and are negative. 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 90 tablet 0 metoprolol tartrate, short acting, (LOPRESSOR) 100 mg tablet Take 1 tablet by mouth once daily. 90 tablet 0 Hydrochlorothiazide 12.5 mg capsule Take 1 capsule by mouth once daily. 90 capsule 0 metFORMIN (GLUCOPHAGE) 1,000 mg tablet Take 1 tablet by mouth twice daily with meals. 180 tablet 3 pravastatin (PRAVACHOL) 20 mg tablet Take 1 tablet by mouth daily at bedtime. 90 tablet 3 sitaGLIPtin (JANUVIA) 100 mg tablet Take 1 tablet by mouth once daily. 30 tablet 0 glimepiride (AMARYL) 4 mg tablet Take 1 tablet by mouth daily with breakfast. 90 tablet 3 meloxicam (MOBIC) 15 mg tablet Take 1 tablet by mouth once daily. With food. 30 tablet 1 ketoconazole (NIZORAL) 2 % cream Apply 1 application to affected area twice daily. APPLY TO AFFECTED AREA 30 g 1 allopurinol (ZYLOPRIM) 300 mg tablet Take 1 tablet by mouth once daily. 90 tablet 3 Fenofibrate 160 mg tablet Take 1 tablet by mouth once daily. 90 tablet 3 Aspirin 81 mg ORAL Tab Take 81 mg by mouth. omega-3 fatty acids(FISH OIL 300 MG CAP) Take one(1) tablet two(2) times daily. 0 MULTIVITAMIN TAB Take one(1) tablet daily. 0 No current facility-administered medications for this visit. PAST SURGICAL HISTORY Procedure Laterality Date CHOLECYSTECTOMY 2002 Cholecystectomy, lap (Sergio) COLONOSCOPY FLX DX W/COLLJ SPEC WHEN PFRMD 02/02/03 Colonoscopy COLONOSCOPY FLX DX W/COLLJ SPEC WHEN PFRMD 09/30/05 Colonoscopy COLONOSCOPY FLX DX W/COLLJ SPEC WHEN PFRMD 06/24/11 KNEE ARTHROSCOPY 08/2010 Rt knee meniscus tear ( Zunilda Barrow) PAST SURGICAL HISTORY OF right ankle SIGMOIDOSCOPY FLX DX W/COLLJ SPEC BR/WA IF PFRMD 03/10/03 Sigmoidoscopy FAMILY HISTORY Problem Relation Age of Onset other (KIDNEY FAILURE [Other]) Father HIGH BLOOD PRESSURE Heart Mother Diabetes Sister Heart Sister Cancer Sister lung None Brother None Brother None Brother Social History Tobacco Use Smoking status: Never Substance Use Topics Alcohol use: No Drug use: No Objective BP 130/78 Pulse (!) 59 Temp (!) 38.2 ?C (100.8 ?F) Resp 16 Wt 127.5 kg (281 lb) SpO2 97% BMI 37.07 kg/m? Physical Exam Vitals reviewed. Constitutional: Appearance: Normal appearance. HENT: Head: Normocephalic and atraumatic. Musculoskeletal: Hands: Comments: Patient has redness of the entire dorsal right hand with a central scab overlying the first metacarpal. He has lymphangitic streaking up to his elbow as well. Pain with range of motion of the thumb. Skin: General: Skin is warm. Neurological: Mental Status: He is alert. Assessment and Plan ASSESSMENT/PLAN: 1. Fever, unspecified fever cause - ICD9: 780.60, ICD10: R50.9 (primary diagnosis) Patient is febrile here at 100.8, has cellulitis with lymphangitic streaking. Recommend he be evaluated in the emergency department. Sent to [facility] for further evaluation. ER passport sent. 2. Cellulitis of skin - ICD9: 682.9, ICD10: L03.90 Kateryna Okeefe PA-C [facility] History of Present illness Narrative 02-15-2023 Kateryna Okeefe PA-C - 02/15/2023 3:29 PM EDT Note Date & Type Note Facility 02-15-2023 History of Presen t illness Narrative Images from the original note were not included. This note was created using [employer]. Subjective Rogelio Davenport is a 62 year old male. HPI Presents with the chief complaint of right hand redness and swelling. He is diabetic. He thinks he got bit by a spider as he put his hand in a work glove and felt a sharp pinch 2 days ago. He noticed it got more red and swollen today. More painful. He has had some nausea and a headache. Denies history of MRSA. Review of Systems Constitutional: Positive for fatigue. Musculoskeletal: Right hand redness and swelling Neurological: Positive for headaches. All other systems reviewed and are negative. 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 90 tablet 0 metoprolol tartrate, short acting, (LOPRESSOR) 100 mg tablet Take 1 tablet by mouth once daily. 90 tablet 0 Hydrochlorothiazide 12.5 mg capsule Take 1 capsule by mouth once daily. 90 capsule 0 metFORMIN (GLUCOPHAGE) 1,000 mg tablet Take 1 tablet by mouth twice daily with meals. 180 tablet 3 pravastatin (PRAVACHOL) 20 mg tablet Take 1 tablet by mouth daily at bedtime. 90 tablet 3 sitaGLIPtin (JANUVIA) 100 mg tablet Take 1 tablet by mouth once daily. 30 tablet 0 glimepiride (AMARYL) 4 mg tablet Take 1 tablet by mouth daily with breakfast. 90 tablet 3 meloxicam (MOBIC) 15 mg tablet Take 1 tablet by mouth once daily. With food. 30 tablet 1 ketoconazole (NIZORAL) 2 % cream Apply 1 application to affected area twice daily. APPLY TO AFFECTED AREA 30 g 1 allopurinol (ZYLOPRIM) 300 mg tablet Take 1 tablet by mouth once daily. 90 tablet 3 Fenofibrate 160 mg tablet Take 1 tablet by mouth once daily. 90 tablet 3 Aspirin 81 mg ORAL Tab Take 81 mg by mouth. omega-3 fatty acids(FISH OIL 300 MG CAP) Take one(1) tablet two(2) times daily. 0 MULTIVITAMIN TAB Take one(1) tablet daily. 0 No current facility-administered medications for this visit. PAST SURGICAL HISTORY Procedure Laterality Date CHOLECYSTECTOMY 2002 Cholecystectomy, lap (Sergio) COLONOSCOPY FLX DX W/COLLJ SPEC WHEN PFRMD 02/02/03 Colonoscopy COLONOSCOPY FLX DX W/COLLJ SPEC WHEN PFRMD 09/30/05 Colonoscopy COLONOSCOPY FLX DX W/COLLJ SPEC WHEN PFRMD 06/24/11 KNEE ARTHROSCOPY 08/2010 Rt knee meniscus tear ( Zunilda Barrow) PAST SURGICAL HISTORY OF right ankle SIGMOIDOSCOPY FLX DX W/COLLJ SPEC BR/WA IF PFRMD 03/10/03 Sigmoidoscopy FAMILY HISTORY Problem Relation Age of Onset other (KIDNEY FAILURE [Other]) Father HIGH BLOOD PRESSURE Heart Mother Diabetes Sister Heart Sister Cancer Sister lung None Brother None Brother None Brother Social History Tobacco Use Smoking status: Never Substance Use Topics Alcohol use: No Drug use: No Objective BP 130/78 Pulse (!) 59 Temp (!) 38.2 C (100.8 F) Resp 16 Wt 127.5 kg (281 lb) SpO2 97% BMI 37.07 kg/m Physical Exam Vitals reviewed. Constitutional: Appearance: Normal appearance. HENT: Head: Normocephalic and atraumatic. Musculoskeletal: Hands: Comments: Patient has redness of the entire dorsal right hand with a central scab overlying the first metacarpal. He has lymphangitic streaking up to his elbow as well. Pain with range of motion of the thumb. Skin: General: Skin is warm. Neurological: Mental Status: He is alert. Assessment and Plan ASSESSMENT/PLAN: 1. Fever, unspecified fever cause - ICD9: 780.60, ICD10: R50.9 (primary diagnosis) Patient is febrile here at 100.8, has cellulitis with lymphangitic streaking. Recommend he be evaluated in the emergency department. Sent to [facility] for further evaluation. ER passport sent. 2. Cellulitis of skin - ICD9: 682.9, ICD10: L03.90 Kateryna Okeefe PA-C documented in this encounter [facility] History of Past illness Narrative 11-16-2010 Note Date & Type Note Facility documented as of this encounter (statuses as of 02/15/2023) [facility] Evaluation note Note Date & Type Note Facility documented in this encounter [facility] Summary Purpose Family History No Family History Records Found Advance Directives No Advanced Directives Records Found Additional Source Comments Source Comments (unrecognize d section and content) In the event this informatio n is protected by the Federal Confidentiality of Alcohol and Drug Abuse Patient Records regulations: The Federal rules restrict any use of the information to criminally investigate or prosecute any alcohol or drug abuse patient.[facility] Reason for Visit (unrecogniz ed section and content) (unrecognized sect ion and content) No Status Records Found INFORMATION SOURCE (unrecogn ized section and content) FOR RECORDS PERTAINING TO PATIENTS WHO ARE OR HAVE BEEN ENROLLED IN A CHEMICAL DEPENDENCY/SUBSTANCEABUSE PROGRAM, SOME INFORMATION MAY BE OMITTED. This clinical summary was aggregated from multiple sources. Caution should be exercised in using it in the provision of clinical care. This summary normalizes information from multiple sources, and as a consequence, information in this document may materially change the coding, format and clinical context of patient data. In addition, data may be omitted in some cases. CLINICAL DECISIONS SHOULD BE BASED ON THE PRIMARY CLINICAL RECORDS. [facility]. provides no warranty or guarantee of the accuracy or completeness of information in this document.
[2023-11-06 13:08] LABS: AST(SGOT) 40 U/L (15-37); Alanine Aminotransfer ALT/SGPT 60 U/L (16-61); Albumin, Serum 3.7 g/dL (3.2-5.0); Alkaline Phosphatase 64 U/L (45-117); Bilirubin, Direct 0.18 mg/dL (0.00-0.30); Globulin 3.2 g/dL (2.2-4.2); Protein, Total 6.9 g/dL (6.4-8.2)
== END | disposition home or self-care (01) ==
PROVIDERS: PCP Nurse Practitioner Family; Visit Provider Nurse Practitioner Family
DX: R94.5 Abnormal results of liver function studies (principal)
CPT/HCPCS: 36415; 80076

== ENCOUNTER → 2024-02-10 | Outpatient (CLI) | payer BC, SELFPAY ==
[2024-02-10 10:21] LABS: Absolute Lymphocyte Count 0.99 X10^3/uL (0.83-4.51); Basophil# 0.05 X10^3/uL; Basophil% 1.1 % (0-1); Eosinophil# 0.19 X10^3/uL; Eosinophils% 4.2 % (0-5); Hematocrit 42.2 % (40-54); Hemoglobin 14.5 g/dL (13.0-16.5); Lymphocyte # 0.99 X10^3/ul (0.83-4.51); Lymphocyte % 21.8 % (19-41); Mean Corp Hgb Conc 34.4 g/dL (32-36); Mean Corpuscular Hgb 29.4 pg (27.0-32.0); Mean Corpuscular Volume 85.6 fL (80-94); Mean Platelet Vol. 11.1 fl (6.2-12.0); Monocyte# 0.33 X10^3/uL; Monocyte% 7.3 % (0-10); NRBC Flagged by Analyzer 0 % (0-5); Neutrophil # 2.98 X10^3/uL (2.7-7.7); Neutrophil % 65.4 % (47-70); Platelet Count 130 K/mm3 (150-450); RBC Distribution Width CV 13.4 % (11.6-14.6); RBC Distribution Width SD 41.8 fl (35.1-43.9); Red Blood Count 4.93 M/mm3 (4.6-6.2); White Blood Count 4.6 K/mm3 (4.4-11.0)
[2024-02-10 10:54] LABS: Cholesterol 188 mg/dL (200); High Density Lipoprotein 38 mg/dL; PSA,Total - Annual Screen 2.45 ng/mL (0.00-4.00); Triglycerides 332 mg/dL; Very Low Density Lipoprotein 66 mg/dL (5-40)
[2024-02-10 16:30] LABS: AST(SGOT) 30 U/L (15-37); Alanine Aminotransfer ALT/SGPT 49 U/L (16-61); Albumin, Serum 3.5 g/dL (3.2-5.0); Alkaline Phosphatase 75 U/L (45-117); Anion Gap 9 (5-15); BUN 17 mg/dL (7-18); BUN/Creat Ratio 13.4 RATIO (10-20); Calcium,Total 9.4 mg/dL (8.5-10.1); Chloride 104 mmol/L (98-107); Creatinine, Serum 1.27 mg/dL (0.70-1.30); EST Glomerular Filtration Rate 61 mL/min (>60); Est Glom Filt Rate - Afr Amer 74 mL/min (>60); Globulin 3.5 g/dL (2.2-4.2); Glucose 349 mg/dL (74-106); Potassium 3.9 mmol/L (3.5-5.1); Sodium Level 137 mmol/L (136-145)
== END | disposition home or self-care (01) ==
LOC: MTLAB 07:58
PROVIDERS: PCP Nurse Practitioner Family; Referring Provider Nurse Practitioner Family; Visit Provider Nurse Practitioner Family
DX: I10 Essential (primary) hypertension (principal); E78.5 Hyperlipidemia, unspecified; Z12.5 Encounter for screening for malignant neoplasm of prostate
CPT/HCPCS: 36415; 80053; 80061; 84153; 85025; G0103

== ENCOUNTER → 2025-02-19 | Outpatient (CLI) | payer BC, SELFPAY ==
[2025-02-19 10:54] LABS: Absolute Lymphocyte Count 1.62 X10^3/uL (0.83-4.51); Absolute Neutrophil Count 4.5 X10^3/uL (2.0-7.7); Basophil% 1.4 % (0-1); Eosinophils% 4.3 % (0-5); Hemoglobin 14.6 g/dL (13.0-16.5); Lymphocyte # 1.62 X10^3/ul (0.83-4.51); Lymphocyte % 23.4 % (19-41); Mean Corp Hgb Conc 35.6 g/dL (32-36); Mean Corpuscular Hgb 30.3 pg (27.0-32.0); Mean Corpuscular Volume 85.1 fL (80-94); Monocyte# 0.43 X10^3/uL; Monocyte% 6.2 % (0-10); NRBC Flagged by Analyzer 0 % (0-5); Neutrophil # 4.47 X10^3/uL (2.7-7.7); Neutrophil % 64.6 % (47-70); Platelet Count 183 K/mm3 (150-450); RBC Distribution Width CV 13.6 % (11.6-14.6); Red Blood Count 4.82 M/mm3 (4.6-6.2); White Blood Count 6.9 K/mm3 (4.4-11.0)
[2025-02-19 11:27] LABS: ALB/GLOB Ratio 1.4 RATIO (0.9-2.4); AST(SGOT) 40 U/L (<=37); Alanine Aminotransfer ALT/SGPT 39 U/L (<=46); Albumin, Serum 4.2 g/dL (3.4-4.8); Alkaline Phosphatase 63 U/L (40-129); Anion Gap 12 (5-15); BUN 29 mg/dL (4-19); BUN/Creat Ratio 19.9 RATIO (10-20); Calcium,Total 9.3 mg/dL (7.6-11.0); Carbon Dioxide 21.4 mmol/L (21.0-32.0); Chloride 104 mmol/L (98-108); Cholesterol 171 mg/dL (<=200); Creatinine, Serum 1.46 mg/dL (0.70-1.20); EST Glomerular Filtration Rate 53 (>60); Glucose 163 mg/dL (70-99); High Density Lipoprotein 33 mg/dL; Low Density Lipoprotein Calc. 73 mg/dL; PSA,Total - Annual Screen 2.64 ng/mL (0.02-4.00); Potassium 4.4 mmol/L (3.3-5.1); Protein, Total 7.2 g/dL (5.9-8.4); Sodium Level 137 mmol/L (133-145); Total Bilirubin 0.73 mg/dL (0.00-1.30); Triglycerides 328 mg/dL; Very Low Density Lipoprotein 66 mg/dL (5-40); cholesterol:hdl ratio screen 5.25
== END | disposition home or self-care (01) ==
LOC: LAB 10:34
PROVIDERS: PCP Nurse Practitioner Family; Referring Provider Nurse Practitioner Family; Visit Provider Nurse Practitioner Family
DX: Z00.01 Encounter for general adult medical examination with abnormal findings (principal)
CPT/HCPCS: 36415; 80053; 80061; 84153; 85025; G0103